=== PATIENT | female | born 1935 | race Caucasian/White ===

== ENCOUNTER → 2017-04-10 | Outpatient (CLI) | payer OTHER ==
[~2017-04-10] VITALS: Ht 157.5 cm; Wt 59.0 kg
[~2017-04-10] MED LIST: ACTIQ400 MCG BC; ACTIQ400 MCG PO; AMITRIPTYLINE H10 M3 PO; ASPIRIN EC81 M1 PO; ATIVAN0.5 MG PO; BENEFIBER1 EAC1 PO; CALCIUM PO; CARDIOTAB PO; CELEXA20 MG PO; CLARITIN-D 121 EACH PO; COLACE100 MG PO; FAMVIR500 MG PO; FENTANYL BU; HYDROCHLOROTHIA25 M1 PO; HYDROCODON-ACE1 EAC4 PO; HYDROCODON-ACE1 EAC5 PO; LISINOPRIL10 MG PO; MOBIC7.5 MG PO; MULTIVITAMINS PO; NASACORT SPRAY; NASACORT10.8 ML NS; NEURONTIN 300300 M1 PO; NORCO 10-325 T1 EACH PO; PHENERGAN12.5 M1; POTASSIUM20 PO; PREMARIN0.625 MG PO; PRILOSEC 20 MG20 MG PO; PROMS25 WY RECTAL; SYNTHROID100 MCG PO; SYNTHROID88 MCG PO; TOPAMAX 100 MG100 MG PO; TOPAMAX200 MG PO; TRAZODONE HCL50 MG PO; TRICOR145 MG PO; VERAPAMIL ER180 MG PO; VERAPAMIL HCL180 MG PO; VITAMIN D31000 UNI2 PO; VITAMIN D3400 UNIT PO
--- NOTE | ~2017-04-10 | HPC ---
[facility] [place] [address] PAIN MANAGEMENT CONSULTATION Name: SY GERMAIN [facility] [id number] Admission: 04/10/17 Attend Phys: Norman Andrea DO Discharge: Date of : 37 Report #: [id number] THIS REPORT FOR: //name// CC: Dell Andrea The patient is a very pleasant 81-year-old female being treated for chronic headaches, requiring complex medication management. She has a component of neuropathic pain. She had been stable on gabapentin 300 mg t.i.d., verapamil 180 mg b.i.d. for migraine prophylaxis with hydrocodone 10/325 up to 4 a day as needed for headaches. She returns to pain clinic today noting that while medications have typically kept headaches to 2-3 a month, she notes with recent barometric pressure changes, weather changes and stress, headaches have been more frequent. She has had about 3 headaches over the past 3 weeks. Notes pain is a 6, chronic headache, a pressure sensation. Denies visual changes other than photophobia. Physical exam shows a 81-year-old female, BMI is 23.8 kilograms per meter squared. Blood pressure is modestly elevated at 175/90, pulse 51, respirations 16. Alert and oriented to person, place and time, judged to be a reasonable historian. Cervical range of motion is limited. No nuchal rigidity, but little tenderness over the frontalis muscles and tenderness in the splenius capitis. No cervical adenopathy is appreciated. We reviewed the fact that opiate medications are being used to provide analgesia adequate to support activities of daily living, not attempting to achieve a specific pain score on the 0-10 Visual Analog Scale. The current opiate medications are providing sufficient analgesia to allow the patient to participate in activities of daily living. The patient is not exhibiting any aberrant behavior suggestive of drug diversion. The patient is not having any adverse reactions to medications. The patient is not suffering from daytime somnolence or mental acuity changes. The patient is managing opiate-induced constipation with appropriate apao-sgi-axbxbpj agents and dietary considerations. The patient was counseled on concern for caution with operating a motor vehicle while using opiate medications. A physical exam was performed and the patient's functional status was evaluated. All patients with back pain were advised against the bed rest greater than 4 days and were advised to return to normal activities. Pain score assessment was noted and the treatment plan was reviewed with the patient. All current medications, both prescribed and OTC were reviewed and reconciled on the electronic medical record. Tobacco screening was accomplished and smoking cessation was advised when indicated. BMI was noted and diet/exercise modification was recommended for all patients following outside normal [address] [address] PAIN MANAGEMENT CONSULTATION Name: SY GERMAIN Thai Room #: REG HERMAN Lyles#: [id number] Admission: 04/10/17 Attend Phys: Norman Andrea DO Discharge: Date of : 37 Report #: [id number] parameters. I reviewed with the patient today their responsibilities to safeguard prescription medications, reviewed their responsibility to utilize medications only as prescribed by the physician. They are to seek and receive pain medications only from 1 physician group ( [facility]). They are to use 1 pharmacy and keep the clinic informed if they change pharmacies. Their responsibilities include making followup visits in a timely fashion and to avoid abrupt discontinuation of medication usage. Their responsibilities further include bringing their medications (bottles from the pharmacy with residual pills) to the visit for possible confirmation of pill counts and the patient understands it is their responsibility to submit to random drug screens to ensure both that the medications prescribed are present, and that no other controlled substances are present. All prescriptions provided today were generated electronically. 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 RECOMMENDATIONS: Continue gabapentin, verapamil, and hydrocodone unchanged. I have taken the liberty of writing for 3 months of current medications. ASSESSMENT #2: Acute exacerbation of chronic headaches. Sphenopalatine ganglion block is accomplished today. PROCEDURE NOTE: After written informed consent was obtained, the patient was placed in supine position. A cotton pledget was wetted with 4% cocaine. Cotton pledgets were placed in the left and right nares to the posterior pharynx. Then, 60 mg of cocaine (1.5 mL of 4% solution) was dripped onto the cotton pledgets via a 20-gauge Angiocath . The cotton pledgets were kept in place for 15 minutes and removed. The patient was monitored for an appropriate period of time, discharged in good and stable condition, noting significantly improved baseline pain. Follow up as needed. <ELECTRONICALLY SIGNED> By: Norman Andrea DO 04/13/17 0657 [id number] Norman Andrea DO /nt
[2017-04-10 11:26] VITALS: BP 175/90
== END ==
LOC: PAIN 06:52
DX: G62.9 Polyneuropathy, unspecified (principal); G43.909 Migraine, unspecified, not intractable, without status migrainosus

== ENCOUNTER → 2017-07-16 | Outpatient (CLI) | payer OTHER ==
[~2017-07-16] VITALS: Ht 157.5 cm; Wt 59.4 kg
--- NOTE | ~2017-07-16 | HPC ---
[facility] [address] [place] [address] PAIN MANAGEMENT CONSULTATION Name: SY GERMAIN Room #: REG HERMAN Trupti#: [id number] Admission: 07/16/17 Attend Phys: Norman Andrea DO Discharge: Date of : 37 Report #: [id number] THIS REPORT FOR: //name// CC: Dell Andrea The patient is a 81-year-old female, long treated for chronic headaches, neuropathic pain requiring high risk complex medication management. She has been stable on hydrocodone 10/325 up to 4 a day, verapamil 180 mg b.i.d., gabapentin 300 mg t.i.d. Her last visit was 04/10/2017. The patient was continued on her baseline medication. We did a sphenopalatine ganglion block at last visit, which did help with abort acute headache. We reviewed the fact that opiate medications are being used to provide analgesia adequate to support activities of daily living, not attempting to achieve a specific pain score on the 0-10 Visual Analog Scale. The current opiate medications are providing sufficient analgesia to allow the patient to participate in activities of daily living. The patient is not exhibiting any aberrant behavior suggestive of drug diversion. The patient is not having any adverse reactions to medications. The patient is not suffering from daytime somnolence or mental acuity changes. The patient is managing opiate-induced constipation with appropriate avyl-glf-mfyrmbp agents and dietary considerations. The patient was counseled on concern for caution with operating a motor vehicle while using opiate medications. A physical exam was performed and the patient's functional status was evaluated. All patients with back pain were advised against the bed rest greater than 4 days and were advised to return to normal activities. Pain score assessment was noted and the treatment plan was reviewed with the patient. All current medications, both prescribed and OTC were reviewed and reconciled on the electronic medical record. Tobacco screening was accomplished and smoking cessation was advised when indicated. BMI was noted and diet/exercise modification was recommended for all patients following outside normal parameters. I reviewed with the patient today their responsibilities to safeguard prescription medications, reviewed their responsibility to utilize medications only as prescribed by the physician. They are to seek and receive pain medications only from 1 physician group ( [facility]). They are to use 1 pharmacy and keep the clinic informed if they change pharmacies. Their responsibilities include making followup visits in a timely fashion and to avoid abrupt discontinuation of medication usage. Their responsibilities further include bringing their medications (bottles from the pharmacy with residual pills) to the visit for possible confirmation of pill counts and the patient understands it is their responsibility to submit to [place] [address] PAIN MANAGEMENT CONSULTATION Name: SY GERMAIN Room #: REG Martina Lyles#: [id number] Admission: 07/16/17 Attend Phys: Norman Andrea DO Discharge: Date of : 37 Report #: [id number] ensure both that the medications prescribed are present, and that no other controlled substances are present. All prescriptions provided today were generated electronically. The patient notes pain to 3/10, today she is doing reasonably well, chronic hip pressure she rates about 3 in a 0-10 VAS. Otherwise, again, she has been doing reasonably well. The sphenopalatine ganglion block at last visit afforded very good incremental relief overall (the patient notes 90% relief). PHYSICAL EXAMINATION: Shows 81-year-old female, BMI is 24 kilograms per meter squared. Blood pressure is elevated today 161/97, pulse 52, respirations 14. Cranial nerves 2-12 grossly intact. Pupils are equal and reactive to light and accommodation. Extraocular muscles are intact. There is no nystagmus or lateral gaze deviation. Has modest photophobia, though not as bad as it has been in the past. ASSESSMENT: Symptomatic chronic headaches, neuropathic pain requiring high risk complex medication management. RECOMMENDATIONS: Continue hydrocodone 10/325 up to 4 a day. I am dictating after the patient left the office. I note that she is an opiate consent to treat contract patient, but we have not had a random drug screen, we will check a buccal drug swab at next visit. No aberrant behavior suggestive for drug diversion, simply complying with our opiate consent to treat contract. Discharged in good and stable condition. Follow up in 3 months or earlier if needed for sphenopalatine ganglion block. By: [id number] Norman Andrea, /nt
[2017-07-16 09:36] VITALS: BP 161/97
== END ==
LOC: PAIN 06:09
DX: M79.2 Neuralgia and neuritis, unspecified (principal); R51 Headache

== ENCOUNTER → 2017-09-10 | Outpatient (CLI) | payer OTHER ==
[~2017-09-10] VITALS: Ht 157.5 cm; Wt 62.3 kg
--- NOTE | ~2017-09-10 | HPC ---
[facility] [address] [place] [address] PAIN MANAGEMENT CONSULTATION Name: SY GERMAIN [facility] [id number] Admission: 09/10/17 Attend Phys: Norman Andrea DO Discharge: Date of : 37 Report #: [id number] THIS REPORT FOR: //name// CC: Dell Andrea DATE OF SERVICE: 09/10/2017 The patient is a 81-year-old female typically treated for chronic headaches, neuropathic pain requiring high risk complex medication management. Last seen in the pain clinic 07/16/2017. Continuing patient on hydrocodone 10/325 up to 4 a day, verapamil 180 mg b.i.d. for migraine prophylaxis, gabapentin 300 mg t.i.d. Last sphenopalatine ganglion block was in April. The patient returns to pain clinic today. She is having another intractable headache. She rates the pain 7 on a VAS, feels like a like a Vise-Hose Suspender Cutter around her head. Barometric pressure and stress seem to exacerbate these symptoms. PHYSICAL EXAMINATION: VITAL SIGNS: Shows a 81-year-old female, BMI is 25.1 kilograms per meter squared. Does have some photophobia. VITAL SIGNS: Blood pressure is modestly elevated at 175/88, pulse 56, respirations 12. NECK: Cervical range of motion is limited. MUSCULOSKELETAL: No cervical adenopathy is noted. No tenderness over the frontal sinus. ASSESSMENT: Symptomatic chronic headaches, migraine equivalent. The patient is stable on current medications. She says she has done well with occasional sphenopalatine ganglion blocks. RECOMMENDATION: Repeat sphenopalatine ganglion block today. PROCEDURE NOTE: After written informed consent was obtained, the patient was placed in a supine position. A cotton pledget was wetted with 4% cocaine and placed in the left nares to the posterior pharynx. A second cotton pledget was wetted with 4% cocaine and placed in the right nares to the posterior pharynx. A 2 mL, 80 mg, of cocaine was then dripped via a 20-gauge Angiocath on to the cotton pledgets. This was kept in place for 15 minutes. The patient was monitored for an appropriate period of time, discharged in good and stable condition, noting significant improvement of baseline pain about 60% overall [address] [address] PAIN MANAGEMENT CONSULTATION Name: SY GERMAIN Room #: [facility] [id number] Admission: 09/10/17 Attend Phys: Norman Andrea DO Discharge: Date of : 37 Report #: [id number] reduction. Remaining cocaine was wasted. The patient was discharged in good and stable condition. Follow up as needed for medication management. <ELECTRONICALLY SIGNED> By: Norman Andrea DO 09/11/17 0731 1606 0537 Norman Andrea DO /nt
[2017-09-10 14:22] VITALS: BP 175/88
== END | disposition home or self-care (01) ==
LOC: PAIN 08-13 10:30
DX: G43.909 Migraine, unspecified, not intractable, without status migrainosus (principal); G62.9 Polyneuropathy, unspecified

== ENCOUNTER → 2017-10-02 | Outpatient (CLI) | payer OTHER ==
[~2017-10-02] VITALS: Ht 157.5 cm; Wt 61.1 kg
--- NOTE | ~2017-10-02 | HPC ---
[facility] [place] [address] PAIN MANAGEMENT CONSULTATION Name: SY GERMAIN Room #: REG HERMAN Trupti#: [id number] Admission: 10/02/17 Attend Phys: Norman Andrea DO Discharge: Date of : 37 Report #: [id number] THIS REPORT FOR: //name// CC: Dell Andrea The patient is a 81-year-old female, long treated for chronic headaches, neuropathic pain requiring high risk complex medication management. She has generally been stable on verapamil 180 mg b.i.d. for migraine prophylaxis, gabapentin 300 mg t.i.d. and hydrocodone 10/325 up to 4 a day. She occasionally will get a sphenopalatine ganglion blocks for acute migraine headaches. Typically will do 2 or 3 a year. She usually gets several months relief, though last sphenopalatine ganglion block was a month ago on 09/10/2017. She notes incremental relief following an injection, but symptoms do remain problematic. She rates her headache an 8 on VAS, feels like a "vise strip roller on her head." Notes that emotional stressors do exacerbate pain. The patient lost her of many years this year. This is her first holiday season without him. We did review concern for complicated grieving and increasing stress during this time. PHYSICAL EXAMINATION: Shows 81-year-old female, BMI is 24.6 kilograms per meter squared. Blood pressure is a little bit elevated 184/90, pulse 61, respirations are 16. Cranial nerves 2-12 are grossly intact. Pupils equal, react to light and accommodation. Extraocular muscles are intact. Has a modest amount of photophobia. Cervical range of motion is adequate. Upper extremity strength is preserved. We reviewed the fact that opiate medications are being used to provide analgesia adequate to support activities of daily living, not attempting to achieve a specific pain score on the 0-10 Visual Analog Scale. The current opiate medications are providing sufficient analgesia to allow the patient to participate in activities of daily living. The patient is not exhibiting any aberrant behavior suggestive of drug diversion. The patient is not having any adverse reactions to medications. The patient is not suffering from daytime somnolence or mental acuity changes. The patient is managing opiate-induced constipation with appropriate euny-wbn-msaimaw agents and dietary considerations. The patient was counseled on concern for caution with operating a motor vehicle while using opiate medications. A physical exam was performed and the patient's functional status was evaluated. All patients with back pain were advised against the bed rest greater than 4 days and were advised to return to normal activities. Pain score assessment was noted and the treatment plan was reviewed with the patient. All current medications, both prescribed and OTC were reviewed and reconciled on the electronic medical record. Tobacco screening was accomplished and smoking cessation was advised when indicated. BMI was noted and diet/exercise [address] [address] PAIN MANAGEMENT CONSULTATION Name: SY GERMAIN Room #: REG [facility]SHadyee[facility] [id number] Admission: 10/02/17 Attend Phys: Norman Andrea DO Discharge: Date of : 37 Report #: [id number] modification was recommended for all patients following outside normal parameters. I reviewed with the patient today their responsibilities to safeguard prescription medications, reviewed their responsibility to utilize medications only as prescribed by the physician. They are to seek and receive pain medications only from 1 physician group ( [facility]). They are to use 1 pharmacy and keep the clinic informed if they change pharmacies. Their responsibilities include making followup visits in a timely fashion and to avoid abrupt discontinuation of medication usage. Their responsibilities further include bringing their medications (bottles from the pharmacy with residual pills) to the visit for possible confirmation of pill counts and the patient understands it is their responsibility to submit to random drug screens to ensure both that the medications prescribed are present, and that no other controlled substances are present. All prescriptions provided today were generated electronically. ASSESSMENT #1: Chronic neuropathic pain, headaches, requiring high risk complex medication management. RECOMMENDATIONS: 1. Renew current medication unchanged including verapamil, gabapentin and hydrocodone. 2. Buccal drug swab accomplished today. No aberrant behavior suggestive for drug diversion, simply complying with opiate consent to treat contract. ASSESSMENT #2: Acute exacerbation of a frontal headache. RECOMMENDATIONS: Sphenopalatine ganglion block, repeat today. PROCEDURE NOTE: After written informed consent was obtained, the patient placed in supine position. Two cotton pledgets were wetted with 4% cocaine past down the left and right naris to the posterior pharynx. A 2 mL (80 mg) of cocaine was then dripped via 20-gauge Angiocath onto the cotton pledgets. They were kept in place for 15 minutes. The patient monitored for an appropriate period of time, discharged in good and stable condition, noting incremental improvement of baseline pain. <ELECTRONICALLY SIGNED> By: Norman Andrea DO 10/05/17 0759 [id number] 1454 Norman Andrea DO /nt
[2017-10-02 13:11] VITALS: BP 184/90
== END | disposition home or self-care (01) ==
LOC: PAIN 06:52
DX: G43.909 Migraine, unspecified, not intractable, without status migrainosus (principal); G89.29 Other chronic pain; M79.2 Neuralgia and neuritis, unspecified; Z79.891 Long term (current) use of opiate analgesic; Z88.1 Allergy status to other antibiotic agents; Z79.82 Long term (current) use of aspirin; Z98.890 Other specified postprocedural states; Z79.899 Other long term (current) drug therapy

== ENCOUNTER → 2017-12-28 | Outpatient (CLI) | payer OTHER ==
[~2017-12-28] VITALS: Ht 157.5 cm; Wt 63.6 kg
[~2017-12-28] MED LIST changes: +NORTRIPTYLINE H10 M2 PO
--- NOTE | ~2017-12-28 | HPC ---
[facility] [place] [address] PAIN MANAGEMENT CONSULTATION Name: SY GERMAIN Room #: REG HERMAN Trupti#: [id number] Admission: 12/28/17 Attend Phys: Norman Andrea DO Discharge: Date of : 37 Report #: [id number] THIS REPORT FOR: //name// CC: Dell Andrea The patient is a pleasant 82-year-old female typically treated for chronic headaches, neuropathic pain requiring complex medication management. Last seen in the pain clinic 10/02/2017, continued on verapamil 180 mg b.i.d., gabapentin 300 mg t.i.d., and hydrocodone 10/325 up to 4 a day. Occasional sphenopalatine ganglion blocks have helped with acute headache pain. Last buccal random drug swab 10/02/2017, was positive for prescribed medications and no others. We have trialled triptan agents (Imitrex) with untoward side effects. She is stable on baseline medications. We reviewed the fact that opiate medications are being used to provide analgesia adequate to support activities of daily living, not attempting to achieve a specific pain score on the 0-10 Visual Analog Scale. The current opiate medications are providing sufficient analgesia to allow the patient to participate in activities of daily living. The patient is not exhibiting any aberrant behavior suggestive of drug diversion. The patient is not having any adverse reactions to medications. The patient is not suffering from daytime somnolence or mental acuity changes. The patient is managing opiate-induced constipation with appropriate dxeb-fke-bjhuqny agents and dietary considerations. The patient was counseled on concern for caution with operating a motor vehicle while using opiate medications. A physical exam was performed and the patient's functional status was evaluated. All patients with back pain were advised against the bed rest greater than 4 days and were advised to return to normal activities. Pain score assessment was noted and the treatment plan was reviewed with the patient. All current medications, both prescribed and OTC were reviewed and reconciled on the electronic medical record. Tobacco screening was accomplished and smoking cessation was advised when indicated. BMI was noted and diet/exercise modification was recommended for all patients following outside normal parameters. I reviewed with the patient today their responsibilities to safeguard prescription medications, reviewed their responsibility to utilize medications only as prescribed by the physician. They are to seek and receive pain medications only from 1 physician group ( [facility]). They are to use 1 pharmacy and keep the clinic informed if they change pharmacies. Their responsibilities include making followup visits in a timely fashion and to avoid abrupt discontinuation of medication usage. Their responsibilities further include bringing their medications (bottles from the pharmacy with residual pills) to the visit for possible confirmation of pill counts and the patient [address] [address] PAIN MANAGEMENT CONSULTATION Name: SY GERMAIN Thai Room #: REG HERMAN Lyles#: [id number] Admission: 12/28/17 Attend Phys: Norman Andrea DO Discharge: Date of : 37 Report #: [id number] understands it is their responsibility to submit to random drug screens to ensure both that the medications prescribed are present, and that no other controlled substances are present. All prescriptions provided today were generated electronically. PHYSICAL EXAMINATION: Shows an 82-year-old female, BMI is 25.6 kg/m2. Blood pressure is modestly elevated 176/91, pulse is 55, and respirations are 18. Subjective pain score is 6 on a VAS. Ongoing headache. Negative cervical adenopathy. No frontal maxillary sinus tenderness. Cervical range of motion is modestly limited, left greater than right hemifacial pain, face appears symmetric. Upper extremity strength is preserved. The patient has not fallen in the last 3 months. Her opiate consent to treat contract was reviewed, last signed 07/10/2016. Functional assessment score is 23/70. ASSESSMENT: Chronic headaches, neuropathic pain requiring complex medication management, stable on baseline medication. RECOMMENDATION: 1. Renew hydrocodone 10/325 up to 4 a day, I have taken the liberty of writing for 3 months of current medications for renew verapamil 180 mg b.i.d. Does not require renewal for gabapentin. 2. Sphenopalatine ganglion block today. PROCEDURE NOTE: After written informed consent was obtained, the patient was placed in supine position. A cotton pledget was wetted with 4% cocaine and placed in the left naris to the posterior pharynx, second cotton pledget was placed in the right naris to the posterior pharynx. A 2 mL of 4% cocaine (80 mg) was dripped via 20-gauge Angiocath onto the cotton pledget. Cotton pledgets were left in place for 15 minutes and removed. The patient was monitored for an appropriate period of time, discharged in good and stable condition, noting a significant improvement of baseline pain. <ELECTRONICALLY SIGNED> By: Norman Andrea DO 12/31/17 1010 [id number] 1654 Norman Andrea DO /nt
[2017-12-28 10:07] VITALS: BP 176/91
== END ==
LOC: PAIN 12-25 10:27
DX: G89.29 Other chronic pain (principal); R51 Headache; M79.2 Neuralgia and neuritis, unspecified; Z79.899 Other long term (current) drug therapy

== ENCOUNTER → 2018-04-15 | Outpatient (CLI) | payer OTHER ==
[~2018-04-15] VITALS: Ht 157.5 cm; Wt 63.3 kg
--- NOTE | ~2018-04-15 | HPC ---
[facility] [place] [address] PAIN MANAGEMENT CONSULTATION Name: SY GERMAIN Room #: REG HERMAN ChuyLenKory#: [id number] Admission: 04/15/18 Attend Phys: Norman Andrea DO Discharge: Date of : 39 Report #: [id number] THIS REPORT FOR: //name// CC: Dell Andrea The patient is a pleasant 82-year-old female typically treated for neuropathic pain, hemifacial, chronic headaches, requiring complex medication management. The patient was last seen in the pain clinic on 01/22/2018, continued on her baseline medication including verapamil 180 mg b.i.d., nortriptyline 10 mg 1-2 at bedtime and gabapentin 300 mg t.i.d. She uses hydrocodone 10/325 up to 4 a day. She had had a sphenopalatine ganglion block on 01/22/2018, which significantly decreased the frequency and intensity of her headaches. Unfortunately, headaches have continued to be problematic. Most recently, she has had a headache for 5 days, which is becoming quite problematic. She has used Imitrex in the past for breakthrough headaches. It appears that the selective serotonin agonist agents (sumatriptan, etc) have afforded somewhat less relief for aborting her headaches. The patient returns to pain clinic today noting current headache is a 7 on a VAS. She notes the pain is exacerbated with weather changes and stress. Primarily, left hemicranial. PHYSICAL EXAMINATION: Shows an 82-year-old female, BMI is 25.5 kilograms per meter squared. Vital signs are stable as noted on the EMR with modest systolic hypertension (blood pressure 158/83). Cranial nerves 2-12 are grossly intact. She has some photophobia, subjective tenderness in the left temporal area. No temporal arteritis tenderness noted. No cervical adenopathy. Cervical range of motion is modestly limited. Upper extremity strength is preserved. She is alert and oriented to person, place, and time, judged to be a reasonable historian. Extraocular muscles are intact. There is no nystagmus, lateral gaze deviation. Last random drug screen on 10/05/2017 is positive for prescribed medications and no others. We reviewed the fact that opiate medications are being used to provide analgesia adequate to support activities of daily living, not attempting to achieve a specific pain score on the 0-10 Visual Analog Scale. The current opiate medications are providing sufficient analgesia to allow the patient to participate in activities of daily living. The patient is not exhibiting any aberrant behavior suggestive of drug diversion. The patient is not having any adverse reactions to medications. The patient [place] [address] PAIN MANAGEMENT CONSULTATION Name: SY GERMAIN Room #: [facility]#: [id number] Admission: 04/15/18 Attend Phys: Norman Andrea DO Discharge: Date of : 39 Report #: [id number] somnolence or mental acuity changes. The patient is managing opiate-induced constipation with appropriate [id number] agents and dietary considerations. The patient was counseled on concern for caution with operating a motor vehicle while using opiate medications. A physical exam was performed and the patient's functional status was evaluated. All patients with back pain were advised against the bed rest greater than 4 days and were advised to return to normal activities. Pain score assessment was noted and the treatment plan was reviewed with the patient. All current medications, both prescribed and OTC were reviewed and reconciled on the electronic medical record. Tobacco screening was accomplished and smoking cessation was advised when indicated. BMI was noted and diet/exercise modification was recommended for all patients following outside normal parameters. I reviewed with the patient today their responsibilities to safeguard prescription medications, reviewed their responsibility to utilize medications only as prescribed by the physician. They are to seek and receive pain medications only from 1 physician group ( [facility]). They are to use 1 pharmacy and keep the clinic informed if they change pharmacies. Their responsibilities include making followup visits in a timely fashion and to avoid abrupt discontinuation of medication usage. Their responsibilities further include bringing their medications (bottles from the pharmacy with residual pills) to the visit for possible confirmation of pill counts and the patient understands it is their responsibility to submit to random drug screens to ensure both that the medications prescribed are present, and that no other controlled substances are present. All prescriptions provided today were generated electronically. ASSESSMENT: 1. Chronic pain syndrome, neuropathic pain requiring complex medication management, stable on baseline medication and migraine headaches by history. 2. Acute exacerbation of vascular headache. RECOMMENDATIONS: Continue hydrocodone 10/325 up to 4 a day. I have taken the liberty of writing for 3 months of current medication. Continue verapamil 180 mg b.i.d., nortriptyline 10 mg 1-2 at bedtime and gabapentin 300 mg t.i.d. Sphenopalatine ganglion block today. PROCEDURE NOTE: After written informed consent was obtained, the patient was placed in supine position. Two cotton pledgets were wetted with 4% cocaine. Each cotton pledget was gently advanced through the left and right nares respectively to the posterior pharynx. A 2 mL of 4% cocaine (80 mg) was then slowly dripped via a 20-gauge Angiocath, inserted in the nares parallel to the cotton pledget. Once the total cocaine load had been placed, the patient was allowed to rest for 15 minutes with the cotton pledgets in place. They were [facility] [address] [place] [address] PAIN MANAGEMENT CONSULTATION Name: SY GERMAIN Thai Room #: REG [facility] Trupti#: [id number] Admission: 04/15/18 Attend Phys: Norman Andrea DO Discharge: Date of : 39 Report #: [id number] withdrawn. The patient monitored for an appropriate period of time, discharged in good and stable condition, vital signs remained stable. Subjective pain score significantly improved down to 2 on a VAS. Follow up with any of the [facility], I believe Dr. Jaime Beth would be a good fit for the patient. <ELECTRONICALLY SIGNED> By: Norman Andrea DO 04/19/18 0710 [id number] 1310 Norman Andrea DO /nt
[2018-04-15 10:30] VITALS: BP 158/83
== END | disposition home or self-care (01) ==
LOC: PAIN 06:49
DX: G44.1 Vascular headache, not elsewhere classified (principal); G89.4 Chronic pain syndrome; G43.909 Migraine, unspecified, not intractable, without status migrainosus; M79.2 Neuralgia and neuritis, unspecified; Z88.8 Allergy status to other drugs, medicaments and biological substances; Z79.891 Long term (current) use of opiate analgesic; Z79.82 Long term (current) use of aspirin; Z79.899 Other long term (current) drug therapy